=== PATIENT | female | born 1950 | race Caucasian/White ===

== ENCOUNTER 2016-06-27 17:55 | Inpatient (IN) | payer MEDICARE, OTHER ==
[~2016-06-27] VITALS: Ht 167.6 cm; Wt 95.8 kg
--- NOTE | ~2016-06-27 | ENPV ---
Vascular Lower Extremities DVT Study Procedure Demographics Patient Name KARMEN PATEL Date of Study 06/28/2016 K Patient Number [id number] Gender Female Date of 1950 Age 65 Visit Number [id number] Height 66 Accession Number [id number] Weight 206 Referring Eve Ruiz MD Physician Physician Physician Mohini Padgett Mica Paster Physician Nohemi DORMAN Lab Pack Chemist Jonelle Modi [facility], RVT Conclusions Summary There is chronic deep vein thrombosis in the right leg from the superficial femoral vein in the lower thigh, through the popliteal vein, to the to calf veins inferiorly. The SFV above the mid thigh is clear. No evidence of deep vein thrombosis or superficial thrombophlebitis in the left lower extremity . Procedure Type of Study: Veins:Lower Extremities DVT Study, Venous Duplex Lower Extremity Bilateral. Appropriate Use Criteria:7 Patient Status:Routine. Study Location:Mobile Services. Technical Quality:Adequate visualization. Velocities are measured in cm/s ; Diameters are measured in cm Right Lower Extremities DVT Study Measurements Right 2D and Doppler Measurements + + + + +------+------+ + !Location !Visualized!Compressibility!Thrombosis!Signal!Reflux!Reflux ! ! ! ! ! ! ! !(sec) ! + + + + +------+------+ + !GSV Thigh !Yes !Yes !None !Phasic! ! ! + + + + +------+------+ + !Common !Yes !Yes !None !Phasic! ! ! !Femoral ! ! ! ! ! ! ! + + + + +------+------+ + !Prox !Yes !Yes !None !Phasic! ! ! !Femoral ! ! ! ! ! ! ! + + + + +------+------+ + !Mid Femoral!Yes !Yes !None !Phasic! ! ! + + + + +------+------+ + !Dist !Yes !No !Chronic !Absent! ! ! !Femoral ! ! ! ! ! ! ! + + + + +------+------+ + !Popliteal !Yes !No !Chronic !Absent! ! ! + + + + +------+------+ + !Gastroc !No !No !Chronic !Absent! ! ! + + + + +------+------+ + !PTV !No !No !Chronic !Absent! ! ! + + + + +------+------+ + !Peroneal !No !No !Acute !Absent! ! ! + + + + +------+------+ + Left Lower Extremities DVT Study Measurements Left 2D and Doppler Measurements + + + + +------+------+ + !Location !Visualized!Compressibility!Thrombosis!Signal!Reflux!Reflux ! ! ! ! ! ! ! !(sec) ! + + + + +------+------+ + !GSV Thigh !Yes !Yes !None !Phasic!No ! ! + + + + +------+------+ + !Common !Yes !Yes !None !Phasic!No ! ! !Femoral ! ! ! ! ! ! ! + + + + +------+------+ + !Prox !Yes !Yes !None !Phasic!No ! ! !Femoral ! ! ! ! ! ! ! + + + + +------+------+ + !Mid Femoral!Yes !Yes !None !Phasic!No ! ! + + + + +------+------+ + !Dist !Yes !Yes !None !Phasic!No ! ! !Femoral ! ! ! ! ! ! ! + + + + +------+------+ + !Popliteal !Yes !Yes !None !Phasic!No ! ! + + + + +------+------+ + !Gastroc !Yes !Yes !None !Phasic!No ! ! + + + + +------+------+ + !PTV !Yes !Yes !None !Phasic!No ! ! + + + + +------+------+ + !Peroneal !Yes !Yes !None !Phasic!No ! ! + + + + +------+------+ + Signature dtt: Efe Gomez dtd: 06/28/16 0840 Physician Self Briana
--- NOTE | ~2016-06-27 | HP ---
PATIENT'S NAME: KARMEN PATEL [facility] AGE: 65 Y [address] ROOM: [place] [address] LOCATION: [facility] ADMIT DATE: 06/27/2016 History & Physical DISCHARGE DATE: FAMILY PHYSICIAN: Guillermo Lee MD ATTENDING PHYSICIAN: LIEN HOPKINS DATE OF SERVICE: CHIEF COMPLAINT: PE. HISTORY OF PRESENT ILLNESS: The patient is a 65-year-old female, who is currently under the care of Dr. 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 She is currently on aggressive steroid therapy with prednisone at 40 mg daily. The patient was being seen by Dr. Ragland earlier in the office today. She was complaining of chronic fatigue and right-sided chest pain as well as profound dyspnea with even minor exertion. She had a CT of her chest with contrast for PE protocol and has been found to have bilateral PEs. She has been sent to [facility] as direct admit and started on heparin at this point. The patient does endorse chronic dyspnea on exertion and chest pain related to chest tubes, which she had during her recent hospitalization at [facility]. This is approximately 2 weeks ago and I do not have any records of that hospital stay. Apparently, she had what sounds like possibly an open lung biopsy, though again not clear. REVIEW OF SYSTEMS: All 10 systems have been reviewed and all are negative aside from pertinent positives mentioned above. PAST MEDICAL HISTORY: 1. 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 2. Parkinson's. 3. Seizures, on Dilantin. 4. Hypertension. 5. Qil-dvhmmle-glvvepzvv diabetes mellitus. 6. Steroid therapy. 7. Depression, this is based on her medications. CURRENT MEDICATIONS: 1. Amlodipine. 2. Acetaminophen/caffeine. 3. Aspirin 81. PATIENT'S NAME: KARMEN PATEL [facility] AGE: 65 Y [address] ROOM: [place] [address] LOCATION: [facility] ADMIT DATE: 06/27/2016 History & Physical DISCHARGE DATE: FAMILY PHYSICIAN: Guillermo Lee MD ATTENDING PHYSICIAN: LIEN HOPKINS 4. BuSpar 10 t.i.d. 5. Coreg 12.5 p.o. b.i.d. 6. Cholecalciferol. 7. Cyanocobalamin. 8. Dawson-3 fatty acids. 9. Omeprazole. 10. Ondansetron. 11. Phenytoin. 12. Prednisone 40. 13. Sitagliptin/metformin. 14. Spironolactone. SOCIAL HISTORY: Negative for any history of ongoing toxic habits. FAMILY HISTORY: Reviewed and is noncontributory due to a known underlying etiology to her process. PHYSICAL EXAMINATION: VITAL SIGNS: Temperature 96.6, pulse 61, respirations 22, blood pressure 159/74, and saturating 100% on 1 L nasal cannula. GENERAL: Appears a pale, elderly female, in no acute distress. LYMPHATIC: Shows no cervical lymphadenopathy. ENDOCRINE: Shows no thyromegaly. LUNGS: Show very minor crackles at the left base. HEART: Shows regular rate and rhythm without appreciable murmurs, gallops, or rubs. GI: Abdomen is soft, nontender, and nondistended. : No costovertebral angle tenderness. VASCULAR: 2+ bilateral pitting lower extremity edema and 2+ pedal pulses. MUSCULOSKELETAL: Unremarkable. SKIN: Pale, warm, and dry. PSYCHIATRIC: Appropriate mood, cognition, and affect. LABORATORY DATA: Studies performed at [facility] so far; white count of 4.7, hemoglobin of 12.4, platelets of 178. Unremarkable differential. Normal Coags. ASSESSMENT AND PLAN: This is a 65-year-old female, who will be admitted with bilateral pulmonary embolisms. Individual problems to be addressed as follows. 1. Bilateral pulmonary embolisms. The patient has already been started on heparin. We will convert her to an oral anticoagulant tomorrow or in 2 days. We will also need to request records from Dr. Ragland as well as PATIENT'S NAME: KARMEN PATEL [facility] AGE: 65 Y [address] ROOM: [address] [address] LOCATION: [facility] ADMIT DATE: 06/27/2016 History & Physical DISCHARGE DATE: FAMILY PHYSICIAN: Guillermo Lee MD ATTENDING PHYSICIAN: LIEN HOPKINS [facility]. 2. Questionable history of eosinophilic pneumonia. We will await for records and Pulmonology consultation. 3. Ret-pgssdal-eymqxtwzn diabetes. We will continue the patient on her Januvia and metformin. 4. Essential hypertension. We will continue her on her antihypertensive regimen. 5. Steroid therapy. Continue on steroids. Additional management will depend on clinical course. Time dedicated to this patient encounter is 35 minutes. MD ARMANDO FRANK/isatu /[id number] D: [id number] T: [id number] HISTORY & PHYSICAL
--- NOTE | ~2016-06-27 | DS ---
PATIENT'S NAME: KARMEN PATEL [facility] AGE: 65 Y [address] ROOM: [address] [place], [place] [address] LOCATION: [facility] ADMIT DATE: 06/29/2016 Discharge Summary DISCHARGE DATE: 07/02/2016 FAMILY PHYSICIAN: Guillermo Lee MD ATTENDING PHYSICIAN: Dayron López V PRINCIPAL DIAGNOSES: 1. Bilateral pulmonary embolism. 2. Qxsdp-cz-dmeaign hypoxic respiratory failure. 3. Acute right lower extremity deep venous thrombosis. 4. Hyperkalemia resolved. 5. Essential hypertension. 6. Chronic diastolic heart failure. 7. Parkinson's disease. 8. Diabetes mellitus type 2. 9. Recent eosinophilic pneumonia with long steroid taper. HOSPITAL COURSE: Please reference any admitting data to the history and physical as dictated by Dr. Dayron López. Briefly, a 65-year-old female had a followup with her primary box maker paperboard who did a CT scan and she was found to have significant bilateral pulmonary embolism, was brought to [facility] for management and treatment. She was admitted the Hospitalist Service. She was started on a heparin drip. She was given oxygen support requiring 3 L O2. She did have an echocardiogram obtained which had shown no acute complications. A Doppler of the lower extremities did find that there was a chronic DVT in the right leg from the superficial femoral vein through the popliteal vein to the calf veins inferiorly. She was given oral analgesia for pain which did improve through her stay. She was started on Physical Therapy consultation who evaluated and treated the patient. She did not prove to mobilize safely. Over the next few days, she was able to wean off her oxygen. She was started on Coumadin. Her PT/INR was monitored. Her INR did come up to 1.40. On the day of discharge, she was transitioned to Lovenox therapy for bridging until INR goal was met. INR goal is 2.0 to 3.0. She had been weaned to room air without any complications. Oxygen saturations . The patient did have complication of hyperkalemia. While here, initial potassium was 4.6. It was elevated to 6.5, was corrected with Insulin regimen. Her Aldactone was stopped and she was given one dose of Kayexalate. Again, this was corrected to 4.5 and 4.1 respectively and blood pressure was managed accordingly while she was off her Aldactone. It was elected that she continue to stay off her Aldactone with followup of her blood pressures under PCP upon discharge. PATIENT'S NAME: KARMEN PATEL [facility] AGE: 65 Y [address] ROOM: [place] [address] LOCATION: [facility] ADMIT DATE: 06/29/2016 Discharge Summary DISCHARGE DATE: 07/02/2016 FAMILY PHYSICIAN: Guillermo Lee MD ATTENDING PHYSICIAN: Dayron López V The patient's diabetes were managed with sliding scale insulin regimen with Accu-Chek monitoring before meals and at bedtime. The remaining of her chronic conditions were maintained by her home medicines. We did continue her steroid dosing as recommended by her box maker paperboard for recent eosinophilic pneumonia. LABORATORY FINDINGS: White count mildly elevated between 11,000 and 12,000, hemoglobin 10.2, hematocrit of 31.4, and a platelet count of 177. Chemistry panel, hyperkalemia as described above from a potassium of 4.6 to 6.5, then coming down and normalizing to 4.1 on day of discharge, glucose 133, BUN of 21, creatinine 0.8, sodium 139, potassium 4.1, a chloride of 108, a CO2 of 22, a calcium of 7.9, and GFR of greater than 60. INR was 1.40 on day of discharge. A procalcitonin level check was negative. RADIOLOGIC IMAGING: A chest x-ray showed no vascular congestion or acute infiltrate. CT scan from outside facility shows bilateral pulmonary embolism. Cardiovascular Services: Echocardiogram showed a left ventricular ejection fraction of 60 to 65% with moderate concentric left ventricular hypertrophy. Grade 1 diastolic dysfunction. Mildly dilated right ventricle. Moderately reduced right ventricular function. Right atrium mildly dilated. Positive Temple sign. Severe pulmonary hypertension. Venous Doppler showing a chronic DVT in the right leg from the superficial femoral vein and lower thigh through the popliteal vein to the calf veins inferiorly. The SFV above the mid thigh is clear. There is no evidence of deep vein thrombosis or superficial thrombophlebitis in the left lower extremity. CONSULTING PROVIDERS: None. DISCHARGE MEDICATIONS: As follows: 1. Janumet mg tablet one tablet p.o. twice daily. 2. Amlodipine 10 mg p.o. every day. 3. Aspirin enteric-coated 81 mg p.o. every morning. 4. BuSpar 10 mg p.o. three times daily. 5. Carvedilol 12.5 mg p.o. twice daily. 6. Vitamin D3 2000 units p.o. every night at bedtime. 7. Fish oil 1000 mg one capsule p.o. twice daily. 8. Prilosec 20 mg p.o. every day. 9. Dilantin 300 mg p.o. every night at bedtime. 10. Prednisone 40 mg p.o. every day x14 days with the start date of PATIENT'S NAME: KARMEN PATEL [facility] AGE: 65 Y [address] ROOM: [id number] [place] [id number] LOCATION: [facility] ADMIT DATE: 06/29/2016 Discharge Summary DISCHARGE DATE: 07/02/2016 FAMILY PHYSICIAN: Guillermo Lee MD ATTENDING PHYSICIAN: Dayron López V 06/25/2016. 11. Aldactone has been stopped. 12. Acetaminophen/caffeine two tablets p.o. every day as needed for headache. 13. Zofran ODT 4 mg p.o. every 4 to 6 hours as needed for nausea. 14. Vitamin B12 1000 mcg one dose intramuscular every 30 days. 15. Nasal saline two puffs each nostril q.i.d. p.r.n. for dry nares. 16. Lovenox 90 mg subcutaneous twice daily until INR is greater than or equal to 2.0. 17. Coumadin 5 mg p.o. every day with an INR goal of 2.0 to 3.0. Her PCP to titrate accordingly. DISCHARGE INSTRUCTIONS: Diet: To remain diabetic and as tolerated. Activity: To remain as tolerated. FOLLOWUP APPOINTMENTS: With Dr. Lee, her primary care provider on 07/04 at 10:45 am with laboratory values to be drawn as follows; a PT/INR, CBC, and BMP. She was requested to take her blood pressure daily and record and take that to her followup, so he could manage accordingly. She is now off her Aldactone, given her hyperkalemia during our hospitalization. We request that the PCP titrate the Coumadin to goal INR of 2.0 to 3.0. She should also continue monitoring her blood glucose twice daily at home as she was doing prior to the hospitalization with management accordingly with the PCP. She should also follow up with Dr. Ragland as previously scheduled with continued steroid taper per his written orders. The patient was given Lovenox teaching and extensive education on blood pressure management and diabetes management as well as diet and lifestyle modifications. She was also given Coumadin teaching and the importance of remaining on Lovenox until her INR goal is met. The above line of management was discussed with the patient and she stated complete understanding. All of her questions were answered accordingly with statements of understanding. Total time arranging discharge was greater than 30 minutes. Thank you for allowing us to participate in the care of this patient while at [facility]. PATIENT'S NAME: KARMEN PATEL [facility] AGE: 65 Y [address] ROOM: [place] [address] LOCATION: [facility] ADMIT DATE: 06/29/2016 Discharge Summary DISCHARGE DATE: 07/02/2016 FAMILY PHYSICIAN: Guillermo Lee MD ATTENDING PHYSICIAN: Dayron López APRN, DIRT CONTRACTOR FOR JUAN MOLINA MD JIR/modl /[id number] CC: Guillermo Lee MD d: t: 07/09/16 0643, DISCHARGE SUMMARY
--- NOTE | ~2016-06-27 | ECHO ---
Transthoracic Echocardiography Report (TTE) Demographics Patient Name AMANDA, Date of Study 06/28/2016 KARMEN Hillman Patient Number [id number] Visit Number [id number] Date of 1950 Room Number G6227 Gender Female Number Age 65 year(s) Referring Eve Olea MD Airplane Dispatch Clerk Jonelle Modi [facility], Physician RVT Physician Interpreting Heidy Lim Meat Scrubber Physician A Supervising Ordering Rene Song MD/MLP Physician MD Nurse Stress Institutional Research Director Conclusions Summary The estimated left ventricular ejection fraction is 60-65%. Moderate concentric left ventricular hypertrophy. Diastolic assessment reveals Grade I diastolic dysfunction. Mildly dilated right ventricle. Moderately reduced right ventricular function. Positive Temple sign. The right atrium is mildly dilated. There is severe pulmonary hypertension. The pulmonary pressure (RVSP) is 68 mmHg. The tricuspid valve is not well visualized. Procedure Type of Study TTE procedure:2D Echocardiogram. Procedure Date Date: 06/28/2016 Start: 09:05 AM Study Location: Inpatient Portable Technical Quality: Adequate visualization Indications:Pulmonary embolus. Appropriate Use Criteria: 9 Patient Status: Routine Rhythm: Within normal limits HR: 63 bpm M-Mode/2D Measurements LV Diastolic Dimension: 4.16 cm LV Systolic Dimension: 2.86 cm LV Septum Diastolic: 1.3 cm LV Septum Systolic: 2.55 cm LV PW Diastolic: 1.35 cm AO Root Dimension: 2.4 cm Cardiac Output: 4.6 l/min AV Cusp Separation: 1.7 cm RV Diastolic Dimension: 3.19 cm LA volume: 49 ml IVC Inspiration: 0.8 cm LVOT: 2.2 cm RV Base: 4.11 cm LVOT VTI: 19.2 cm RV Mid: 3.62 cm LV Stroke volume: 72.95 ml TAPSE: 2.52 cm TDI-S': 21 cm/s Doppler Measurements AV Peak Velocity: 1.78 m/s MV Peak E-Wave: 0.7 m/s AV Peak Gradient: 12.67 mmHg MV Peak A-Wave: 0.96 m/s AV Mean Gradient: 6 mmHg MV E/A Ratio: 0.72 LVOT Peak Velocity: 0.86 m/s MV P1/2t: 77 msec TR Gradient:65.29 mmHg PV Peak Velocity: 0.94 m/s Estimated RAP:3 mmHg PV Peak Gradient: 3.51 mmHg Estimated RVSP: 68 mmHg Estimated PASP: 68.29 mmHg E' Septal Velocity: 0.67 m/s A' Septal Velocity: 0.96 m/s E' Lateral Velocity: 0.05 m/s A' Lateral Velocity: 0.1 m/s MV E/E' Ratio: 12 Findings Left Ventricle The estimated left ventricular ejection fraction is 60-65%. Moderate concentric left ventricular hypertrophy. Diastolic assessment reveals Grade I diastolic dysfunction. Right Ventricle Mildly dilated right ventricle. Moderately reduced right ventricular function. Positive Temple sign. Left Atrium The left atrium at the upper limits of normal. Right Atrium The right atrium is mildly dilated. Mitral Valve Mild mitral regurgitation by color Doppler. Aortic Valve The aortic valve is mildly sclerotic. Tricuspid Valve There is severe pulmonary hypertension. The pulmonary pressure (RVSP) is 68 mmHg. The tricuspid valve is not well visualized. Pulmonic Valve Normal pulmonic valve structure and function. Pericardial Effusion No evidence of pericardial effusion. Miscellaneous Visualized portions of the aortic root and ascending aorta appear normal in size. Pleural Effusion No evidence of pleural effusion. Signature dtt: Perla Moody dtd: 06/28/16 0905 Physician Self Edit
[~2016-06-27 17:55] MED LIST: ALDACTONE100 MG PO; ASPIRIN LO-DOSE81 MG PO; AUGMENTIN 875-1 EACH PO; BUSPAR10 MG PO; COREG12.5 MG PO; DIFLUCAN200 MG PO; DILANTIN100 MG PO; FISH OIL 1,0001 EACH PO; FLORASTOR250 MG PO; GUIATUSS AC (D480 ML PO; HYGROTON50 MG PO; JANUMET 50-1,01 EACH PO; LEVAQUIN 750 M750 MG PO; MIRALAX17 GM PO; NORVASC10 MG PO; PRILOSEC20 MG PO; TYLENOL EXTRA500 MG PO; VITAMIN B-1000 MCG/M IM; VITAMIN D-32000 UNI1 PO; ZOFRAN ODT 4 MG4 MG PO; [UNRECOGNIZED DRUG - OTHER] PO
[2016-06-27 20:16] LABS: BASOPHIL % 0.2 %; EOSINOPHIL % 0.3 %; HEMATOCRIT 36.9 % (33.0-46.0); HEMOGLOBIN 12.4 g/dL (10.0-15.0); IMMATURE GRANULOCYTE # 0.1 K/uL (0.0-0.3); IMMATURE GRANULOCYTE % 0.7 %; LYMPHOCYTE # 1.6 K/uL (0.8-4.0); LYMPHOCYTE % 12.9 %; MCH 32.2 pg (27.0-34.0); MCHC 33.6 gm/dL (32.0-36.5); MCV 95.8 fl (83.0-98.0); MONOCYTE # 0.6 K/uL (0.0-1.0); MONOCYTE % 4.4 %; MPV 11.3 fl (9.4-12.4); NEUTROPHIL # (ANC) 10.4 K/uL (1.8-7.8); NEUTROPHIL % 81.5 %; NRBC % 0 /100WBC (0-0.00); RBC 3.85 M/uL (3.50-5.50); RDW-CV 15.3 % (11.9-14.6); WBC 12.7 K/uL (4.0-11.0)
[2016-06-27 20:18] LABS: PLATELET COUNT 178 K/uL (150-450)
[2016-06-27] MEDS ORDERED: PREDNISONE20 MG PO (20:23)
[2016-06-27 20:25] LABS: INR - (THERAPEUTIC) 1.07 (0.92-1.07); PROTIME 11.2 SECONDS (9.8-11.4); PTT 22 SECONDS (25-32)
[2016-06-28 02:24] LABS: ANION GAP 13.6 (10.0-19.0); CALCIUM 8.7 mg/dL (8.5-10.5); CREATININE 1.1 mg/dL (0.5-1.1); POTASSIUM 4.6 mMol/L (3.7-5.1)
[2016-06-29 04:59] LABS: BASOPHIL % 0.3 %; EOSINOPHIL # 0.3 K/uL (0.0-0.5); EOSINOPHIL % 2.1 %; HEMATOCRIT 31.4 % (33.0-46.0); HEMOGLOBIN 10.6 g/dL (10.0-15.0); IMMATURE GRANULOCYTE # 0.1 K/uL (0.0-0.3); IMMATURE GRANULOCYTE % 0.6 %; LYMPHOCYTE % 33.9 %; MCH 32.5 pg (27.0-34.0); MCHC 33.8 gm/dL (32.0-36.5); MCV 96.3 fl (83.0-98.0); MONOCYTE # 0.7 K/uL (0.0-1.0); MPV 11.1 fl (9.4-12.4); NEUTROPHIL # (ANC) 6.8 K/uL (1.8-7.8); NEUTROPHIL % 57.1 %; NRBC % 0 /100WBC (0-0.00); PLATELET COUNT 172 K/uL (150-450); RBC 3.26 M/uL (3.50-5.50); RDW-CV 15.4 % (11.9-14.6); WBC 11.8 K/uL (4.0-11.0)
[2016-06-29 05:19] LABS: ANION GAP 14.7 (10.0-19.0); CALCIUM 8.2 mg/dL (8.5-10.5); POTASSIUM 4.7 mMol/L (3.7-5.1)
[2016-06-30 04:30] LABS: BASOPHIL % 0.3 %; EOSINOPHIL # 0.2 K/uL (0.0-0.5); EOSINOPHIL % 1.8 %; HEMATOCRIT 31.4 % (33.0-46.0); HEMOGLOBIN 10.5 g/dL (10.0-15.0); IMMATURE GRANULOCYTE # 0.1 K/uL (0.0-0.3); IMMATURE GRANULOCYTE % 0.5 %; LYMPHOCYTE # 4.2 K/uL (0.8-4.0); MCH 32.4 pg (27.0-34.0); MCHC 33.4 gm/dL (32.0-36.5); MCV 96.9 fl (83.0-98.0); MONOCYTE # 0.8 K/uL (0.0-1.0); MONOCYTE % 6.3 %; NEUTROPHIL # (ANC) 7.1 K/uL (1.8-7.8); NEUTROPHIL % 57.1 %; NRBC % 0 /100WBC (0-0.00); PLATELET COUNT 173 K/uL (150-450); RBC 3.24 M/uL (3.50-5.50); RDW-CV 15.6 % (11.9-14.6); WBC 12.5 K/uL (4.0-11.0)
[2016-06-30 04:41] LABS: INR - (THERAPEUTIC) 1.04 (0.92-1.07); PROTIME 10.9 SECONDS (9.8-11.4)
[2016-06-30 04:44] LABS: ANION GAP 14.4 (10.0-19.0); CALCIUM 8.3 mg/dL (8.5-10.5); CREATININE 1.1 mg/dL (0.5-1.1); POTASSIUM 5.4 mMol/L (3.7-5.1)
[2016-06-30 19:22] LABS: BASOPHIL % 0.2 %; EOSINOPHIL % 0.2 %; HEMATOCRIT 35.1 % (33.0-46.0); HEMOGLOBIN 11.5 g/dL (10.0-15.0); IMMATURE GRANULOCYTE # 0.1 K/uL (0.0-0.3); IMMATURE GRANULOCYTE % 0.8 %; LYMPHOCYTE # 0.7 K/uL (0.8-4.0); LYMPHOCYTE % 6.3 %; MCH 32.3 pg (27.0-34.0); MCHC 32.8 gm/dL (32.0-36.5); MCV 98.6 fl (83.0-98.0); MONOCYTE # 0.4 K/uL (0.0-1.0); MONOCYTE % 3.4 %; MPV 10.5 fl (9.4-12.4); NEUTROPHIL # (ANC) 10.5 K/uL (1.8-7.8); NEUTROPHIL % 89.1 %; NRBC % 0 /100WBC (0-0.00); PLATELET COUNT 171 K/uL (150-450); RBC 3.56 M/uL (3.50-5.50); RDW-CV 15.4 % (11.9-14.6); WBC 11.8 K/uL (4.0-11.0)
[2016-06-30 19:35] LABS: ANION GAP 15.7 (10.0-19.0); CALCIUM 8.1 mg/dL (8.5-10.5); CREATININE 1.1 mg/dL (0.5-1.1); POTASSIUM 5.7 mMol/L (3.7-5.1)
[2016-06-30 21:55] LABS: ANION GAP 12.6 (10.0-19.0); CALCIUM 8.1 mg/dL (8.5-10.5)
[2016-06-30 21:57] LABS: POTASSIUM 5.6 mMol/L (3.7-5.1)
[2016-07-01 04:56] LABS: BASOPHIL % 0.2 %; EOSINOPHIL # 0.2 K/uL (0.0-0.5); EOSINOPHIL % 1.6 %; HEMATOCRIT 31.4 % (33.0-46.0); HEMOGLOBIN 10.2 g/dL (10.0-15.0); IMMATURE GRANULOCYTE # 0.1 K/uL (0.0-0.3); IMMATURE GRANULOCYTE % 0.6 %; LYMPHOCYTE # 2.8 K/uL (0.8-4.0); LYMPHOCYTE % 24.2 %; MCH 32.5 pg (27.0-34.0); MCHC 32.5 gm/dL (32.0-36.5); MONOCYTE # 0.8 K/uL (0.0-1.0); MONOCYTE % 6.7 %; MPV 10.5 fl (9.4-12.4); NEUTROPHIL # (ANC) 7.7 K/uL (1.8-7.8); NEUTROPHIL % 66.7 %; NRBC % 0 /100WBC (0-0.00); PLATELET COUNT 177 K/uL (150-450); RBC 3.14 M/uL (3.50-5.50); RDW-CV 15.9 % (11.9-14.6); WBC 11.6 K/uL (4.0-11.0)
[2016-07-01 05:06] LABS: INR - (THERAPEUTIC) 1.1 (0.92-1.07); PROTIME 11.6 SECONDS (9.8-11.4)
[2016-07-01 05:12] LABS: ANION GAP 13.5 (10.0-19.0); BLOOD UREA NITROGEN 22 mg/dL (6-24); CALCIUM 7.9 mg/dL (8.5-10.5); CHLORIDE 107 mMol/L (96-110); CO2 24 mMol/L (22-32); CREATININE 0.8 mg/dL (0.5-1.1); ESTIMATED GFR (MDRD EQUATION) > 60; SODIUM 140 mMol/L (135-145)
[2016-07-01 05:14] LABS: POTASSIUM 4.5 mMol/L (3.7-5.1)
[2016-07-02 05:10] LABS: INR - (THERAPEUTIC) 1.4 (0.92-1.07); PROTIME 14.8 SECONDS (9.8-11.4)
[2016-07-02 05:18] LABS: ANION GAP 13.1 (10.0-19.0); BLOOD UREA NITROGEN 21 mg/dL (6-24); CALCIUM 7.9 mg/dL (8.5-10.5); CHLORIDE 108 mMol/L (96-110); CO2 22 mMol/L (22-32); CREATININE 0.8 mg/dL (0.5-1.1); ESTIMATED GFR (MDRD EQUATION) > 60; POTASSIUM 4.1 mMol/L (3.7-5.1); SODIUM 139 mMol/L (135-145)
[2016-07-02] MEDS ORDERED: NASA MIST SALI177 ML NOSE (14:15)
[2016-07-02] MEDS ORDERED: LOVENOX 10100 MG/1 M SUB-Q (14:18)
[2016-07-02] MEDS ORDERED: COUMADIN ** IA5 MG PO (14:19)
[2016-07-02] MEDS ORDERED: NORCO 5-325 TA1 EACH PO (14:21)
== END 2016-07-02 17:43 | disposition disaster alternative care site (69) | DRG 175 ==
LOC: GNTU 18:09
PROVIDERS: Family Medicine; Internal Medicine; Nurse Practitioner Family; ADMIT Internal Medicine
PROC: B246ZZZ Ultrasonography of Right and Left Heart (ICD-10-PCS; principal; 2016-06-28)
DX: I26.99 Other pulmonary embolism without acute cor pulmonale (principal); J96.21 Acute and chronic respiratory failure with hypoxia; J82 Pulmonary eosinophilia, not elsewhere classified; I50.32 Chronic diastolic (congestive) heart failure; I11.0 Hypertensive heart disease with heart failure; E11.9 Type 2 diabetes mellitus without complications; E87.5 Hyperkalemia; F32.9 Major depressive disorder, single episode, unspecified; G20 Parkinson's disease; G40.909 Epilepsy, unspecified, not intractable, without status epilepticus; L98.499 Non-pressure chronic ulcer of skin of other sites with unspecified severity; Z79.01 Long term (current) use of anticoagulants
CPT/HCPCS: C1751; J1644; J1650; J3420; J7030; J7512